=== PATIENT | male | born 2000 | race Caucasian/White ===

== ENCOUNTER 2023-05-27 13:49 | Emergency (ER) | payer OTHER ==
[~2023-05-27] VITALS: Ht 182.9 cm; Wt 73.1 kg
[2023-05-27 13:55] VITALS: TEMP 98.3
[2023-05-27 16:16] VITALS: BP 129/70; PULSE 64; RESP 18; O2SAT 100
== END 2023-05-27 16:19 | disposition home or self-care (01) ==
LOC: ER 13:50
DX: S29.011A Strain of muscle and tendon of front wall of thorax, initial encounter (principal); X58.XXXA Exposure to other specified factors, initial encounter; Y93.89 Activity, other specified; Y92.89 Other specified places as the place of occurrence of the external cause; Y99.8 Other external cause status
CPT/HCPCS: 71100; 99283